=== PATIENT | female | born 1985 | race Caucasian/White ===

== ENCOUNTER 2017-01-28 09:28 | Emergency (ER) | payer BC ==
[~2017-01-28] VITALS: Ht 152.4 cm; Wt 68.0 kg
[2017-01-28 09:30] VITALS: BP 140/83; PULSE 96; RESP 20; TEMP 98.8; O2SAT 99
[2017-01-28] MEDS ORDERED: MONT10TA2 PO (09:49)
[2017-01-28] MEDS ORDERED: ALLE12TA2 PO (09:49)
[2017-01-28 09:51] VITALS: BP 122/81; PULSE 96; RESP 16; O2SAT 97
--- NOTE | 2017-01-28 10:06 | PD ---
HPI Chief Complaint: Facial Pain or Swelling Time Seen by Provider: 09:58 Travel History International Travel<30 days: No Contact w/Intl Traveler<30days: No Traveled to known affect area: No History of Present Illness HPI 31-year-old female noticed some swelling of the left side of the head area. Patient states that she noticed the swelling yesterday. Patient denies any pain. Patient denies any headache. Patient denies any visual change. Patient denies any fever chills. Patient denies any neck pain. Patient denies any other problem. PFSH Past Medical History Kidney Stones: Yes (X2) Medical other: Yes (OVARIAN CYST) Integumentary: Yes (ABSCESS ON TONSIL) Influenza Vaccination: Yes ?: Not LMP: 01/07/2017 Past Surgical History Abdominal Surgery: Yes (2 KIDNEY STONES) Social History Alcohol Use: Yes (SOCIALLY) Tobacco Use: No Substance Use: No Allergies-Medications (Allergen,Severity, Reaction): Coded Allergies: Penicillin (Verified Allergy, Unknown, 01/28/17) Reported Meds & Prescriptions Reported Meds & Active Scripts Active Reported Singulair (Montelukast Sodium) 10 Mg Tab 10 Mg PO HS Susanna-D 12 Hour Allergy (Fexofenadine-Pseudoephedrine ER 12 HR) 60-120 Mg Shahram 1 Tab PO BID Review of Systems General / Constitutional: No: Fever Eyes: No: Visual changes HENT: No: Headaches Cardiovascular: No: Chest Pain or Discomfort Respiratory: No: Shortness of Breath Gastrointestinal: No: Abdominal Pain Genitourinary: No: Dysuria Musculoskeletal: No: Pain Skin: No Rash Neurologic: No: Weakness Psychiatric: No: Depression Endocrine: No: Polydipsia Hematologic/Lymphatic: No: Easy Bruising Physical Exam Narrative GENERAL: Well-nourished, well-developed patient. SKIN: Focused skin assessment warm/dry. HEAD: Normocephalic. Prominent soft tissue with bony structure bitemporal area. No tenderness on palpation. No redness no heat. No induration. EYES: No scleral icterus. No injection or drainage. NECK: Supple, trachea midline. No JVD or lymphadenopathy. CARDIOVASCULAR: Regular rate and rhythm without murmurs, gallops, or rubs. RESPIRATORY: Breath sounds equal bilaterally. No accessory muscle use. GASTROINTESTINAL: Abdomen soft, non-tender, nondistended. MUSCULOSKELETAL: No cyanosis, or edema. BACK: Nontender without obvious deformity. No CVA tenderness. Neurologic exam normal. Data Data Last Documented VS Vital Signs Date Time Temp Pulse Resp B/P Pulse Ox O2 Delivery O2 Flow Rate FiO2 01/28/17 09:51 96 16 122/81 97 Room Air 01/28/17 09:[address] Brain W/O Iv Contrast(Rout) (01/28/17 10:02) MDM Medical Decision Making Medical Screen Exam Complete: Yes Emergency Medical Condition: Yes Interpretation(s) 10:[address] of the brain shows soft tissue swelling left temporal area. Differential Diagnosis Differential diagnosis including soft tissue prominence, bony prominence, mass. Narrative Course 31-year-old female with prominent soft tissue and bony structure bitemporal area. Diagnosis Primary Impression: Allergic reaction Qualified Code: T78.40XA - Allergic reaction, initial encounter Patient Instructions: General Instructions Additional Instructions: [id number] antihistamine as needed. Follow-up with personal physician. Return if persistent problem or worse. Return if fever, pain swelling. Med/Other Pt SpecificInfo: No Change to Meds Disposition: 01 DISCHARGE HOME Condition: Stable George Taylor MD January 28, 2017 10:06
--- NOTE | 2017-01-28 10:43 | RADRPT ---
EXAM DATE/TIME: 01/28/2017 10:30 [facility] COMPARISON: No previous studies available for comparison. INDICATIONS : Hit head last week. Has swelling on left muslim area. RADIATION DOSE: 33.54 CTDIvol (mGy) MEDICAL HISTORY : None SURGICAL HISTORY : None. ENCOUNTER: Initial ACUITY: 1 day PAIN SCALE: 0/10 LOCATION: Left temporal TECHNIQUE: Multiple contiguous axial images were obtained of the head. Using automated exposure control and adj ustment of the mA and/or kV according to patient size, radiation dose was kept as low as reasonably a chievable to obtain optimal diagnostic quality images. FINDINGS: CEREBRUM: The ventricles are normal. No evidence of midline shift, mass lesion, hemorrhage or acute infarction . No extra-axial fluid collections are seen. POSTERIOR FOSSA: The cerebellum and brainstem are intact. The 4th ventricle is midline. The cerebellopontine angle i s unremarkable. EXTRACRANIAL: There is left temporal region soft tissue swelling. Mild mucoperiosteal thickening is present within the ethmoid sinus. SKULL: The calvaria is intact. No evidence of skull fracture. CONCLUSION: Mild left temporal region soft tissue swelling. No fracture or acute intracranial abnormality is iden tified. Wilmer Vargas MD on January 28, 2017 at 10:37 Board Certified Radiologist. This report was verified electronically.
[2017-01-28 10:59] VITALS: BP 126/85; PULSE 91; RESP 16; O2SAT 97
== END 2017-01-28 11:07 | disposition home or self-care (01) ==
LOC: NEPD 09:28
DX: T78.40XA Allergy, unspecified, initial encounter (principal); X58.XXXA Exposure to other specified factors, initial encounter; Z87.442 Personal history of urinary calculi; N83.209 Unspecified ovarian cyst, unspecified side
CPT/HCPCS: 70450; 99284